=== PATIENT | female | born 1960 ===

== ENCOUNTER 2016-06-18 09:17 | Emergency (ER) | payer OTHER, MEDICAID ==
[2016-06-18 09:23] VITALS: BMI 26.5
[2016-06-18 09:36] VITALS: BP 136/80; PULSE 82; RESP 18; TEMP 98.7; O2SAT 95
[2016-06-18] MEDS ORDERED: Aluminum Hydroxide/Magnesium Hydroxide Susp (30 mL) PO STA (09:46)
[2016-06-18] MEDS ORDERED: Aluminum Hydroxide/Magnesium Hydroxide Susp (30 mL) ONE (09:47)
--- NOTE | 2016-06-18 10:06 | C.PDOC ---
History Of Present Illness 56 yr old female with PMHx of Lupus, presents to the ER stating she has chronic left hip pain and requesting pain medication. Patient states she normally takes 1 Tramadol as per need base. Patient denies recent trauma or fall, back pain, weakness or numbness. Patient walks with a cane. Time Seen by Provider: 06/18/16 09:40 Chief Complaint (Nursing): Lower Extremity Problem/Injury History Per: Patient History/Exam Limitations: no limitations Onset/Duration Of Symptoms: Persistent (Chronic ) Current Symptoms Are (Timing): Still Present Past Medical History Reviewed: Historical Data, Nursing Documentation, Vital Signs Vital Signs: Last Vital Signs Temp 98.7 F 06/18/16 09:25 Pulse 82 06/18/16 09:25 Resp 18 06/18/16 09:25 BP 136/80 06/18/16 09:25 Pulse Ox 95 06/18/16 10:56 - Medical History PMH: Gastritis, Gall Bladder Disease, Malignancy (Breast), Osteoporosis ( OSTEOPENIA) Surgical History: Cholecystectomy, Endoscopy, - [facility] Procedures INJECT/INFUSE NEC (08/03/13) Family History: States: No Known Family Hx - Social History Hx Alcohol Use: No Hx Substance Use: No - Immunization History Hx Tetanus Toxoid Vaccination: No Hx Influenza Vaccination: No Hx Pneumococcal Vaccination: No Review Of Systems Except As Marked, All Systems Reviewed And Found Negative. Musculoskeletal: Positive for: Other (Chronic left hip pain ). Negative for: Back Pain Neurological: Negative for: Weakness, Numbness Physical Exam - Physical Exam Appears: Well, Non-toxic, No Acute Distress Skin: Normal Color, Warm, Dry, No Rash Head: Atraumatic, Normacephalic Oral Mucosa: Moist Chest: Symmetrical, No Tenderness Cardiovascular: Rhythm Regular, No Murmur Respiratory: Normal Breath Sounds, No Rales, No Rhonchi, No Stridor, No Wheezing Extremity: Normal ROM, No Tenderness, No Swelling Neurological/Psych: Oriented x3, Normal Speech, Normal Motor, Normal Sensation, Normal Reflexes Gait: Steady (with a cane) ED Course And Treatment O2 Sat by Pulse Oximetry: 95 Medical Decision Making Medical Decision Making: PLAN: * Maalox PO * Tramadol PO Disposition - Disposition Referrals: [facility] [Outside] [facility] [Outside] Disposition: HOME/ ROUTINE Disposition Time: 09:35 Condition: GOOD Additional Instructions: Thank you for letting us take care of you today. Your provider was Dr. Griffin. You were treated for chronic hip pain. The emergency medical care you received today was directed at your acute symptoms. If you were prescribed any medication, please fill it and take as directed. It may take several days for your symptoms to resolve. Return to the Emergency Department if your symptoms worsen, do not improve, or if you have any other problems. Please contact your doctor or call one of the physicians/clinics you have been referred to that are listed on the Patient Visit Information form that is included in your discharge packet. Bring any paperwork you were given at discharge with you along with any medications you are taking to your follow up visit. Our treatment cannot replace ongoing medical care by a primary care provider (PCP) outside of the emergency department. [facility] you [email or web address] of your care today. Follow up with your doctor as scheduled. Prescriptions: traMADol [Ultram] 50 mg PO Q8 PRN #15 tab PRN Reason: Pain, Severe (8-10) Instructions: Autoimmune Disease (ED) Forms: Gen Discharge Inst Kyrgyz Print Language: BELARUSIAN - Clinical Impression Clinical Impression: Lupus, Hip pain, chronic - Scribe Statement The provider has reviewed the documentation as recorded by the Josue Uribe Provider Attestation: All medical record entries made by the Josue were at my direction and personally dictated by me. I have reviewed the chart and agree that the record accurately reflects my personal performance of the history, physical exam, medical decision making, and the department course for this patient. I have also personally directed, reviewed, and agree with the discharge instructions and disposition.
== END 2016-06-18 10:02 | disposition home or self-care (01) ==
LOC: C.ER 09:17
DX: G89.29 Other chronic pain (principal); M25.552 Pain in left hip; M32.9 Systemic lupus erythematosus, unspecified

== ENCOUNTER 2016-06-19 17:07 | Emergency (ER) | payer OTHER ==
[2016-06-19 17:44] VITALS: BMI 28.3
[2016-06-19] MEDS ORDERED: Oxycodone/Acetaminophen 5/325 mg Tab PO STA (18:05)
[2016-06-19] MEDS ORDERED: Oxycodone/Acetaminophen 5/325 mg Tab ONE (18:21)
--- NOTE | 2016-06-19 18:45 | C.PDOC ---
History Of Present Illness 56 yr old female presents to the ER with complaints of increasing pain in the left hip for the past 4 days. Patient states the pain is worse with walking or any movement. Patient states she has had hip pain intermittently over the past few years but states recently it has got worse. Patient states she normally takes Tramadol for the pain and was seen in ER yesterday, prescribed Tramadol but still has pain. Patient denies back pain, neck pain, headache, weakness or numbness. Time Seen by Provider: 06/19/16 18:01 Chief Complaint (Nursing): Lower Extremity Problem/Injury History Per: Patient History/Exam Limitations: no limitations Onset/Duration Of Symptoms: Days (4) Past Medical History Reviewed: Historical Data, Nursing Documentation, Vital Signs Vital Signs: Last Vital Signs Temp 98.9 F 06/19/16 17:48 Pulse 105 H 06/19/16 17:48 Resp 18 06/19/16 17:48 BP 125/81 06/19/16 17:48 Pulse Ox 99 06/19/16 18:48 - Medical History PMH: Gastritis, Gall Bladder Disease, Malignancy (Breast), Osteoporosis ( OSTEOPENIA) Surgical History: Cholecystectomy, Endoscopy, - [facility] Procedures INJECT/INFUSE NEC (08/03/13) Family History: States: No Known Family Hx - Social History Hx Alcohol Use: No Hx Substance Use: No - Immunization History Hx Tetanus Toxoid Vaccination: No Hx Influenza Vaccination: No Hx Pneumococcal Vaccination: No Review Of Systems Except As Marked, All Systems Reviewed And Found Negative. Musculoskeletal: Positive for: Other ((+) Left hip pain. ). Negative for: Neck Pain, Back Pain Neurological: Negative for: Weakness, Numbness, Headache Physical Exam - Physical Exam Appears: Well, Non-toxic, No Acute Distress Skin: Warm, Dry, No Rash Head: Atraumatic, Normacephalic Oral Mucosa: Moist Chest: Symmetrical, No Deformity Cardiovascular: Rhythm Regular, No Murmur Respiratory: Normal Breath Sounds, No Rales, No Rhonchi, No Stridor, No Wheezing Back: Other ((+) Diffuse tenderness to the LS spine, left buttock and left lateral hips. ) Extremity: Normal ROM, No Swelling Neurological/Psych: Oriented x3, Normal Speech ED Course And Treatment O2 Sat by Pulse Oximetry: 99 - Other Rad X-Ray - Left Hip X-Ray: Interpreted by Me, Viewed By Me Interpretation: No fracture. Moderate DJD. Medical Decision Making Medical Decision Making: PLAN: * X-Ray - Left Hip * Percocet PO * Toradol IM Disposition Counseled Patient/Family Regarding: Diagnosis, Need For Followup - Disposition Referrals: [facility] [Outside] Disposition: HOME/ ROUTINE Disposition Time: 18:40 Condition: FAIR Additional Instructions: Make an apt for follow up in the clinic Prescriptions: Cyclobenzaprine [Cyclobenzaprine HCl] 1 tab PO Q8H PRN #25 tab PRN Reason: Muscle Spasm Naproxen [Naprosyn] 1 tab PO BID PRN #25 tab PRN Reason: Pain oxyCODONE/Acetaminophen [Percocet 5/325 mg Tab] 1 tab PO Q4H PRN #12 tab PRN Reason: .severe pain - Clinical Impression Clinical Impression: Hip pain, left - Scribe Statement The provider has reviewed the documentation as recorded by the Josue Uribe Provider Attestation: All medical record entries made by the Josue were at my direction and personally dictated by me. I have reviewed the chart and agree that the record accurately reflects my personal performance of the history, physical exam, medical decision making, and the department course for this patient. I have also personally directed, reviewed, and agree with the discharge instructions and disposition.
[2016-06-19 19:16] VITALS: BP 123/74; PULSE 98; RESP 16; TEMP 98.4; O2SAT 100
--- NOTE | 2016-06-20 07:31 | RAD ---
PROCEDURE: Left Hip X-ray Radiographs. HISTORY: pain no trauma COMPARISON: None. FINDINGS: BONES: Normal. No fracture. JOINTS: Mild osteoarthritic changes. SOFT TISSUES: Foci of soft tissue calcifications seen adjacent to greater trochanteric bilaterally. OTHER FINDINGS: None. IMPRESSION: No evidence of acute fracture or dislocation. Mild osteoarthritic changes.
== END 2016-06-19 19:14 | disposition home or self-care (01) ==
LOC: C.ER 17:07
DX: M25.552 Pain in left hip (principal)
CPT/HCPCS: 73502; 96372; 99284; J1885

== ENCOUNTER 2016-09-18 15:05 | Emergency (ER) | payer OTHER ==
[2016-09-18 15:05] VITALS: BMI 28.3
--- NOTE | 2016-09-18 15:55 | C.PDOC ---
History Of Present Illness Patient is a 56 year old female presents to the ED for evaluation of vaginal bleeding for the last 12 days. Notes that she's had similar post menopausal vaginal bleeding in the past. Pt states she was diagnosed with breast CA in 2011. Notes having biopsy done by Dr. Pruitt on 04/25. Pt states she went to the clinic to make an appointment but was told there are no appointments available at this time, and was instead referred to the ER. Otherwise, denies any abdominal pain, n/v/d, pelvic pain, back pain, lightheadedness, dizziness, headache, fever, chills, or any other associated symptoms at this time. Chief Complaint (Nursing): Abdominal Pain History Per: Patient History/Exam Limitations: no limitations Onset/Duration Of Symptoms: Days (12) Current Symptoms Are (Timing): Still Present Severity: None Pain Scale Rating Of: 0 Radiation Of Pain To:: None Quality Of Discomfort: "Pain" Associated Symptoms: denies: Fever, Chills, Loss Of Appetite, Back Pain, Chest Pain, Constipation, Urinary Symptoms Exacerbating Factors: None Alleviating Factors: None Recent travel outside of the [place]: No Additional History Per: Patient Abnormal Vaginal Bleeding: Yes Past Medical History Reviewed: Historical Data, Nursing Documentation, Vital Signs Vital Signs: Last Vital Signs Temp 97.8 F 09/18/16 15:11 Pulse 103 H 09/18/16 15:11 Resp 18 09/18/16 15:11 BP 151/90 H 09/18/16 15:11 Pulse Ox 98 09/18/16 17:40 - Medical History PMH: Gastritis, Gall Bladder Disease, Malignancy (Breast), Osteoporosis ( OSTEOPENIA) Surgical History: Cholecystectomy (2001), Endoscopy, - [facility] Procedures INJECT/INFUSE NEC (08/03/13) Family History: States: Unknown Family Hx - Social History Hx Alcohol Use: No Hx Substance Use: No - Immunization History Hx Tetanus Toxoid Vaccination: No Hx Influenza Vaccination: No Hx Pneumococcal Vaccination: No Review Of Systems Except As Marked, All Systems Reviewed And Found Negative. Constitutional: Negative for: Fever, Chills Cardiovascular: Negative for: Chest Pain, Light Headedness Respiratory: Negative for: Shortness of Breath Gastrointestinal: Negative for: Nausea, Vomiting, Abdominal Pain, Diarrhea, Constipation Genitourinary: Positive for: Vaginal Bleeding. Negative for: Dysuria, Frequency , Incontinence, Hematuria, Pelvic Pain Musculoskeletal: Negative for: Back Pain Neurological: Negative for: Headache, Dizziness Physical Exam - Physical Exam Appears: Non-toxic, No Acute Distress Skin: Normal Color, Warm, Dry Head: Atraumatic, Normacephalic Eye(s): bilateral: Normal Inspection Oral Mucosa: Moist Neck: Supple Cardiovascular: Rhythm Regular, No Murmur Respiratory: Normal Breath Sounds, No Rales, No Rhonchi, No Wheezing Gastrointestinal/Abdominal: Soft, No Tenderness Extremity: Bilateral: Atraumatic, Normal ROM Neurological/Psych: Oriented x3, Normal Speech, Normal Cognition ED Course And Treatment - Laboratory Results Result Diagrams: 09/18/16 16:02 09/18/16 16:02 O2 Sat by Pulse Oximetry: 98 (RA) Pulse Ox Interpretation: Normal - CT Scan/US Pelvis/transvag US Other Rad Studies (CT/US): Read By Radiologist, Radiology Report Reviewed CT/US Interpretation: FINDINGS: UTERUS: Measures approximately 7.1 x 4.7 x 5.5 cm. Retroverted. Heterogeneous uterine echotexture limits evaluation for small masses or fibroids. 5 x 6 x 5 mm uterine calcification identified. 4.2 x 2.7 x 4.1 cm probable mid uterine fibroid. 1.5 x 0.8 x 1.5 cm probable posterior uterine fibroid. 3 x 2 x 3 mm anechoic focus within the uterus, uncertain significance. ENDOMETRIUM: Measures 6 mm in diameter. CERVIX: No cervical abnormality identified. RIGHT OVARY: Measures 2.4 x 1.1 x 1.5 cm. Blood flow is demonstrated. LEFT OVARY: Measures 1.7 x 1.0 x 1.8 cm. Suboptimal evaluation of what appears to be limited blood flow in the left ovary. FREE FLUID: No significant free fluid noted. OTHER FINDINGS: None. IMPRESSION: Heterogeneous uterine echotexture. Two probable uterine fibroids as above measuring approximately 4.2 cm and 1.5 cm. 3 x 2 x 3 mm anechoic focus within the uterus, uncertain significance. 5 x 6 x 5 mm uterine calcification identified. Suboptimal evaluation of what appears to be limited blood flow to the left ovary. Progress Note: Blood work, urinalysis, transvaginal ultrasound ordered and reviewed. On re-eval, patient is resting comfortably, denies any chest pain, shortness of breath, or lightheadedness. Spoke with Clinic and made an appointment for the patient for , September 24, 2016 at 8 am. 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 Disposition - Disposition Referrals: Alcides Pruitt [Staff Provider] - [facility] [Outside] Disposition: HOME/ ROUTINE Disposition Time: 17:49 Condition: STABLE Additional Instructions: Follow up in OBGYN Clinic on Thursday. September 24, 2016 at 8 am. Return to ED if feel worse. Seguimiento en la [facility] el [facility]. 16 2016 a las 8 am. Regrese a la catarina de emergencias si se siente peor. 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 - Scribe Statement The provider has reviewed the documentation as recorded by the Scribe Abiola Ordoñez All medical record entries made by the Natanaelibdestiney were at my direction and personally dictated by me. I have reviewed the chart and agree that the record accurately reflects my personal performance of the history, physical exam, medical decision making, and the department course for this patient. I have also personally directed, reviewed, and agree with the discharge instructions and disposition.
[2016-09-18 16:08] LABS: BASO # 0.1 K/uL (0.0-0.2); BASO % 0.7 % (0.0-2.0); EOS # 0.2 K/uL (0.0-0.7); EOS % 2.2 % (0.0-4.0); HEMATOCRIT 40.6 % (34.0-47.0); LYMPH # 2.9 K/uL (1.0-4.3); LYMPH % 31.4 % (20.0-40.0); MEAN CELL VOLUME 87.5 fL (81.0-99.0); MEAN CORPUSCULAR HEMOGLOBIN 29.8 pg (27.0-31.0); MEAN PLATELET VOLUME 9.6 fL (7.2-11.7); MONO # 0.5 K/uL (0.0-0.8); MONO % 5.7 % (0.0-10.0); NRBC % 0.1 % (0.0-2.0); WHITE BLOOD COUNT 9.3 K/uL (4.8-10.8)
[2016-09-18 16:23] LABS: ALKALINE PHOSPHATASE 69 U/L (38-126); ALT/SGPT 31 U/L (9-52); AST/SGOT 31 U/L (14-36); BILIRUBIN,TOTAL 0.5 mg/dL (0.2-1.3); BLOOD UREA NITROGEN 13 mg/dL (7-17); CARBON DIOXIDE 29 mmol/L (22-30); CHLORIDE 101 mmol/L (98-107); GFR AFRICAN-AMERICAN > 60; GLUCOSE,RANDOM 101 mg/dL (65-105); POTASSIUM 4.3 mmol/L (3.6-5.2); SODIUM 142 mmol/L (132-148); TOTAL PROTEIN 7.8 g/dL (6.3-8.3)
--- NOTE | 2016-09-18 17:29 | US ---
HISTORY: post menopausal vaginal bleeding COMPARISON: None available. TECHNIQUE: Real-time transabdominal pelvic ultrasound was performed. In addition a transvaginal pelvic ultrasound was necessary to better depict pelvic anatomy. FINDINGS: UTERUS: Measures approximately 7.1 x 4.7 x 5.5 cm. Retroverted. Heterogeneous uterine echotexture limits evaluation for small masses or fibroids. 5 x 6 x 5 mm uterine calcification identified. 4.2 x 2.7 x 4.1 cm probable mid uterine fibroid. 1.5 x 0.8 x 1.5 cm probable posterior uterine fibroid. 3 x 2 x 3 mm anechoic focus within the uterus, uncertain significance. ENDOMETRIUM: Measures 6 mm in diameter. CERVIX: No cervical abnormality identified. RIGHT OVARY: Measures 2.4 x 1.1 x 1.5 cm. Blood flow is demonstrated. LEFT OVARY: Measures 1.7 x 1.0 x 1.8 cm. Suboptimal evaluation of what appears to be limited blood flow in the left ovary. FREE FLUID: No significant free fluid noted. OTHER FINDINGS: None. IMPRESSION: Heterogeneous uterine echotexture. Two probable uterine fibroids as above measuring approximately 4.2 cm and 1.5 cm. 3 x 2 x 3 mm anechoic focus within the uterus, uncertain significance. 5 x 6 x 5 mm uterine calcification identified. Suboptimal evaluation of what appears to be limited blood flow to the left ovary.
[2016-09-18 17:53] LABS: RBC URINE 97 /hpf (0-3); TRANSITIONAL EPITHIAL 1 /hpf (0-3); URINE BACTERIA OCC (<OCC); URINE BILIRUBIN NEGATIVE (NEGATIVE); URINE BLOOD 3+ (NEGATIVE); URINE COLOR Straw (YELLOW); URINE GLUCOSE (UA) NORMAL (Normal); URINE KETONE NEGATIVE (NEGATIVE); URINE LEUKOCYTE ESTERASE 2+ Leu/uL (Negative); URINE PROTEIN NEGATIVE (NEGATIVE); URINE UROBILINOGEN NORMAL mg/dL (0.2-1.0); WBC URINE 17 /hpf (0-5)
[2016-09-18 18:03] VITALS: BP 136/84; PULSE 97; RESP 20; TEMP 97.7
[2016-09-18 18:31] VITALS: O2SAT 98
== END 2016-09-18 18:04 | disposition home or self-care (01) ==
LOC: C.ER 15:05
DX: N95.0 Postmenopausal bleeding (principal)

== ENCOUNTER 2018-02-12 10:17 | Emergency (ER) | payer SELFPAY ==
[2018-02-12 10:18] VITALS: BMI 27.6
[2018-02-12] MEDS ORDERED: Sodium Chloride 0.9% 1,000 ML IV STA (11:29)
[2018-02-12] MEDS ORDERED: Iohexol 240 (50 ml) PO STA (11:29)
--- NOTE | 2018-02-12 11:29 | C.PDOC ---
Time Seen by Provider: 02/12/18 10:51 Chief Complaint (Nursing): GI Problem Past Medical History Vital Signs: Last Vital Signs Temp 97.9 F 02/12/18 10:25 Pulse 106 H 02/12/18 10:25 Resp 20 02/12/18 10:25 BP 147/91 H 02/12/18 10:25 Pulse Ox 98 02/12/18 10:25 - Medical History PMH: Gastritis, Gall Bladder Disease, Malignancy (Breast), Osteoporosis (OSTEOPENIA) Denies: Chronic Kidney Disease Surgical History: Cholecystectomy (2001), Endoscopy, - [facility] Procedures INJECT/INFUSE NEC (08/03/13) Family History: States: Unknown Family Hx - Social History Hx Alcohol Use: No Hx Substance Use: No - Immunization History Hx Tetanus Toxoid Vaccination: No Hx Influenza Vaccination: No Hx Pneumococcal Vaccination: No ED Course And Treatment O2 Sat by Pulse Oximetry: 98 Disposition - Disposition
--- NOTE | 2018-02-12 11:31 | C.PDOC ---
History Of Present Illness 57yo female, comes to ER reporting constipation "for a long time" and now with abdominal pain, vomiting and diarrhea since last night. Patient states she had been using home remedies like papaya juice, aloe vera but had no relief with her constipation. She now feels as if he abdomen is swollen as well. Patient has been unable to tolerate any PO intake. She denies any fever, chills, chest pain, and offers no additional complaints. 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 denies: Fever, Chills, Chest Pain Additional History Per: Patient Past Medical History Reviewed: Historical Data, Nursing Documentation, Vital Signs Vital Signs: Last Vital Signs Temp 97.9 F 02/12/18 10:25 Pulse 106 H 02/12/18 10:25 Resp 20 02/12/18 10:25 BP 147/91 H 02/12/18 10:25 Pulse Ox 98 02/12/18 10:25 - Medical History PMH: Gastritis, Gall Bladder Disease, Malignancy (Breast), Osteoporosis (OS TEOPENIA) Denies: Chronic Kidney Disease Other PMH: lupus Surgical History: Cholecystectomy (2001), Endoscopy, Other Surgeries: left mastectomy - [facility] Procedures INJECT/INFUSE NEC (08/03/13) Family History: States: No Known Family Hx, Unknown Family Hx - Social History Hx Tobacco Use: No Hx Alcohol Use: No Hx Substance Use: No - Immunization History Hx Tetanus Toxoid Vaccination: No Hx Influenza Vaccination: No Hx Pneumococcal Vaccination: No Review Of Systems Except As Marked, All Systems Reviewed And Found Negative. Constitutional: Negative for: Fever, Chills Cardiovascular: Negative for: Chest Pain Respiratory: Negative for: Shortness of Breath Gastrointestinal: Positive for: Nausea, Vomiting, Abdominal Pain, Diarrhea, Constipation, Other (abdominal swelling) Physical Exam - Physical Exam Appears: Non-toxic Skin: Normal Color, Warm Head: Normacephalic Eye(s): bilateral: Normal Inspection Neck: Normal ROM, Supple Chest: Symmetrical Cardiovascular: Rhythm Regular Respiratory: Normal Breath Sounds Gastrointestinal/Abdominal: Soft, Tenderness (periumbilical), Distention, Guarding, No Rebound Back: Normal Inspection Extremity: Normal ROM Neurological/Psych: Oriented x3 ED Course And Treatment - Laboratory Results Result Diagrams: 02/12/18 11:40 02/12/18 11:40 O2 Sat by Pulse Oximetry: 98 (RA) Pulse Ox Interpretation: Normal - CT Scan/US CT of abdomen/pelvis Other Rad Studies (CT/US): Read By Radiologist, Radiology Report Reviewed CT/US Interpretation: Accession No. : [id number]. Patient Name / ID : MEETA PERDOMO H / [id number]. Exam Date : 02/12/2018 14:26:53 ( Approved ). Study Comment : Sex / Age : F / 57Y. Creator : Charla Perera. Dictator : Mary Em MD. Returned Goods Repairer : Hammer Driver : Mary Em MD. Approver2 : Report Date : 02/12/2018 14:47:17. My Comment : . Date of service: 02/12/2018. PROCEDURE: CT Abdomen and Pelvis with contrast. HISTORY: abd pain, vomiting mixed constipation/diarrhea. COMPARISON: 06/05/2017. TECHNIQUE: CT scan of the abdomen and pelvis was performed after administration of intravenous contrast. Oral contrast was admini stered. Coronal and sagittal reformatted images were obtained. Contrast dose: 100 mL Visipaque 320. Radiation dose: Total exam DLP = 693.81 mGy-cm. This CT exam was performed using one or more of the following dose reduction techniques: Automated exposure control, adjustment of the mA and/or kV according to patient size, and/or use of iterative reconstruction technique. FINDINGS: LOWER THOR AX: There is subsegmental atelectasis in the lung bases. Status post left mastectomy. LIVER: Normal in size with homogeneous enhancement. Fatty liver. Mild dilatation of the intra and extrahepatic biliary radicles is likely related to postcholecystectomy status. GALLBLADDER AND BILE DUCTS: Surgically absent. PANCREAS: Normal in size with homogeneous enhancement. No gross lesion or ductal dilatation. SPLEEN: Normal in size and appearance. ADRENALS: No discrete nodule. KIDNEYS AND URETERS: Normal in size with homogeneous enhancement. No hydronephrosis. No solid mass. VASCULATURE: No aortic aneurysm. BOWEL: There is mild dilatation of the mid and distal small bowel loops. There is segmental narrowing in a loop of small bowel in the right lower quadrant with moderate circumferential mural thickening and also segmental narrowing of the terminal ileum with mild circumferential mural thickening.. The colon is grossly normal in appearance. No bowel wall thickening or o bstruction. APPENDIX: Normal appendix. PERITONEUM: No free fluid. No free air. LYMPH NODES: No enlarged lymph nodes. BLADDER: Well distended and normal in appearance. REPRODUCTIVE: Retroverted fibroid uterus with the largest intramural fibroid in the posterior wall. BONES: No acute fracture. Within normal limits for the patient's age. OTHER FINDINGS: None. IMPRESSION: 1. Multifocal segmental narrowing in the distal small bowel loops with associated moderate circumferential mural thickening and mild proximal dilatation which may represent nonspecific acute infectious/inflammatory enteritis. No bowel obstruction. 2. Fatty liver. 3. Retroverted fibroid uterus. Progress Note: Labs, urinalysis and CT Abdomen/Pelvis w/ IV & PO Contrast ordered. Patient given IV fluids, protonix, morphine and zofran. On re- evaluation patient feels better, tolerates po and is stable to be d/c home with PMD follow up. Disposition - Disposition Disposition: HOME/ ROUTINE Disposition Time: 16:53 Condition: STABLE Additional Instructions: Follow up with PMD within 1-2 days. Return to ED if feel worse. 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 - Scribe Statement The provider has reviewed the documentation as recorded by the Josue Reed Provider Attestation: All medical record entries made by the Josue were at my direction and personally dictated by me. I have reviewed the chart and agree that the record accurately reflects my personal performance of the history, physical exam, medical decision making, and the department course for this patient. I have also personally directed, reviewed, and agree with the discharge instructions and disposition.
[2018-02-12] MEDS ORDERED: Morphine 4 MG/ML VIAL ONE (11:48)
[2018-02-12] MEDS ORDERED: Iohexol 240 (50 ml) ONE (11:48)
[2018-02-12 11:49] LABS: SQUAMOUS EPITHIAL 1 /hpf (0-5); URINE BILIRUBIN NEGATIVE (NEGATIVE); URINE BLOOD 1+ (NEGATIVE); URINE CLARITY Clear (Clear); URINE COLOR Yellow (YELLOW); URINE GLUCOSE (UA) NORMAL (Normal); URINE LEUKOCYTE ESTERASE NEG Leu/uL (Negative); URINE PROTEIN NEGATIVE (NEGATIVE); URINE UROBILINOGEN NORMAL mg/dL (0.2-1.0)
[2018-02-12 11:50] LABS: BASO % 0.3 % (0.0-2.0); EOS % 0.2 % (0.0-4.0); HEMOGLOBIN 16.1 g/dL (11.0-16.0); LYMPH % 8.6 % (20.0-40.0); MEAN CORPUSCULAR HEMOGLOBIN 30.8 pg (27.0-31.0); MEAN CORPUSCULAR HGB CONC 34.6 g/dL (33.0-37.0); MEAN PLATELET VOLUME 9.9 fL (7.2-11.7); MONO # 0.4 K/uL (0.0-0.8); MONO % 3.8 % (0.0-10.0); NEUT # 10.4 K/uL (1.8-7.0); NEUT % 87.1 % (50.0-75.0); PLATELET COUNT 230 K/uL (130-400); RBC 5.23 Mil/uL (3.80-5.20); RED CELL DISTRIBUTION WIDTH 13.2 % (11.5-14.5)
[2018-02-12 11:51] LABS: WHITE BLOOD COUNT 11.9 K/uL (4.8-10.8)
[2018-02-12 12:03] LABS: ALB/GLOB RATIO 1.1 (1.0-2.1); ALT/SGPT 25 U/L (9-52); AST/SGOT 42 U/L (14-36); BLOOD UREA NITROGEN 14 mg/dL (7-17); CALCIUM 9.5 mg/dl (8.6-10.4); GFR NON-AFRICAN AMERICAN > 60; LIPASE 75 U/L (23-300)
[2018-02-12 12:23] VITALS: O2SAT 98
[2018-02-12 12:24] LABS: LYMPHOCYTE 8 % (20-40); MONOCYTE 3 % (0-10); NEUTROPHIL 89 % (50-75); PLATELET ESTIMATE NORMAL (NORMAL); TOTAL CELLS COUNTED 100
[2018-02-12] MEDS ORDERED: Iodixanol 320 MG/ML 100 ML BOTTLE IV ONE (14:15)
--- NOTE | 2018-02-12 15:30 | CT ---
Date of service: 02/12/2018 PROCEDURE: CT Abdomen and Pelvis with contrast HISTORY: abd pain, vomiting mixed constipation/diarrhea COMPARISON: 06/05/2017. TECHNIQUE: CT scan of the abdomen and pelvis was performed after administration of intravenous contrast. Oral contrast was administered. Coronal and sagittal reformatted images were obtained. Contrast dose: 100 mL Visipaque 320 Radiation dose: Total exam DLP = 693.81 mGy-cm. This CT exam was performed using one or more of the following dose reduction techniques: Automated exposure control, adjustment of the mA and/or kV according to patient size, and/or use of iterative reconstruction technique. FINDINGS: LOWER THORAX: There is subsegmental atelectasis in the lung bases. Status post left mastectomy. LIVER: Normal in size with homogeneous enhancement. Fatty liver. Mild dilatation of the intra and extrahepatic biliary radicles is likely related to postcholecystectomy status. GALLBLADDER AND BILE DUCTS: Surgically absent. PANCREAS: Normal in size with homogeneous enhancement. No gross lesion or ductal dilatation. SPLEEN: Normal in size and appearance. ADRENALS: No discrete nodule. KIDNEYS AND URETERS: Normal in size with homogeneous enhancement. No hydronephrosis. No solid mass. VASCULATURE: No aortic aneurysm. BOWEL: There is mild dilatation of the mid and distal small bowel loops. There is segmental narrowing in a loop of small bowel in the right lower quadrant with moderate circumferential mural thickening and also segmental narrowing of the terminal ileum with mild circumferential mural thickening.. The colon is grossly normal in appearance. No bowel wall thickening or obstruction. APPENDIX: Normal appendix. PERITONEUM: No free fluid. No free air. LYMPH NODES: No enlarged lymph nodes. BLADDER: Well distended and normal in appearance. REPRODUCTIVE: Retroverted fibroid uterus with the largest intramural fibroid in the posterior wall. BONES: No acute fracture. Within normal limits for the patient's age. OTHER FINDINGS: None. IMPRESSION: 1. Multifocal segmental narrowing in the distal small bowel loops with associated moderate circumferential mural thickening and mild proximal dilatation which may represent nonspecific acute infectious/inflammatory enteritis. No bowel obstruction. 2. Fatty liver. 3. Retroverted fibroid uterus.
[2018-02-12 17:09] VITALS: BP 124/68; PULSE 88; RESP 14; TEMP 98
== END 2018-02-12 17:29 | disposition home or self-care (01) ==
LOC: C.ER 10:17
DX: K52.9 Noninfective gastroenteritis and colitis, unspecified (principal); M32.9 Systemic lupus erythematosus, unspecified
CPT/HCPCS: 74177; 80053; 81001; 83690; 85025; 96374; 96375; 99285; C9113; J2270; J2405; J7030; Q9966; Q9967

== ENCOUNTER 2018-04-13 06:52 | Day surgery (SDC) | payer SELFPAY ==
[2018-03-30 10:39] VITALS: BMI 27.6
[2018-04-13 07:18] VITALS: O2SAT 100
[2018-04-13] MEDS ORDERED: Lactated Ringer's 500 ML IV ONE ×2 (09:02→09:39)
--- NOTE | 2018-04-13 09:07 | CP.SDSHP ---
Same Day Surgery H & P - History Proposed Procedure: egd. colonoscopy Pre-Op Diagnosis: epigastric pain. heartburn]. weight loss. h/o colon polyps. Family h/o GI cancer (multiple) - Previous Medical/Surgical History Neuro: Other (SLE, Breast cancer, colon polyps) Comments: Father, sister and brother all of GI cancers age 40s, 50s. Previous Surgical History: Left mastectomy 2003. Cholecystectomy 2011. C- section x2 - Allergies Allergies: Allergies No Known Allergies Allergy (Verified 09/18/16 15:26) - Physical Exam Vital Signs: Vital Signs 04/13/18 07:14 Temperature 98.4 F Pulse Rate 103 H Respiratory 18 Rate Blood Pressure 138/82 O2 Sat by Pulse 100 Oximetry Mental Status: Alert & Oriented x3 Neuro: WNL Heart: WNL Lungs: WNL GI: WNL - Impression Impression: epigastric pain. heartburn. weight loss. h/o colon polyps. family h/o GI Cancers (colon, stomach, pancreas) Pt. Evaluated Today:Candidate for Anesthesia & Procedure: Yes - Date & Time Date: 04/13/18 Time: 09:08 Short Stay Discharge - Short Stay Discharge Admitting Diagnosis/Reason for Visit: EPIGASTRIC PAIN, HEART BURN, ABNORMAL WEIGHT LOSS Disposition: HOME/ ROUTINE
[2018-04-13] MEDS ORDERED: Propofol 10 mg/ml Inj (20 ML) ONE ×2 (09:08→09:15)
[2018-04-13 10:14] VITALS: RESP 18
[2018-04-13 12:16] VITALS: BP 137/56; PULSE 76; TEMP 98.1
== END 2018-04-13 12:10 | disposition home or self-care (01) ==
LOC: C.ENDO 06:52
PROVIDERS: ATTEND Internal Medicine Gastroenterology
DX: K21.0 Gastro-esophageal reflux disease with esophagitis (principal); K29.50 Unspecified chronic gastritis without bleeding; K57.30 Diverticulosis of large intestine without perforation or abscess without bleeding; K64.1 Second degree hemorrhoids; Z86.010 Personal history of colon polyps; M32.9 Systemic lupus erythematosus, unspecified; Z90.12 Acquired absence of left breast and nipple; Z85.3 Personal history of malignant neoplasm of breast; Z80.0 Family history of malignant neoplasm of digestive organs
CPT/HCPCS: 43239; 45378; 88305; 88312; 88342; J2001; J2704; J7120

== ENCOUNTER 2018-05-26 08:38 | Outpatient (CLI) | payer SELFPAY | END 2018-05-26 08:39 | disposition home or self-care (01) | LOC: C.CTH 08:38 | DX: R63.4 Abnormal weight loss (principal); R10.30 Lower abdominal pain, unspecified ==

== ENCOUNTER 2018-06-25 10:15 | Emergency (ER) | payer SELFPAY, MEDICAID ==
[2018-06-25 10:15] VITALS: BMI 27.6
[2018-06-25 10:24] VITALS: TEMP 98.1
--- NOTE | 2018-06-25 11:26 | C.PDOC ---
History Of Present Illness 58 year old female with PMHx of hemorrhoids, fibroids, lupus, and left sided mastectomy presents to the ED complaining of low back pain and bladder pain. Also reports hematuria for one month. States she has history of chronic back pain but this time is worse. Denies any trauma or injuries. Denies any nausea, chills, or fever. Time Seen by Provider: 06/25/18 10:47 Chief Complaint (Nursing): Back Pain History Per: Patient History/Exam Limitations: no limitations Onset/Duration Of Symptoms: Days Current Symptoms Are (Timing): Still Present Quality Of Discomfort: "Pain" Previous Symptoms: Chronic Pain Associated Symptoms: None Past Medical History Reviewed: Historical Data, Nursing Documentation, Vital Signs Vital Signs: Last Vital Signs Temp 98.1 F 06/25/18 10:20 Pulse 80 06/25/18 10:20 Resp 18 06/25/18 10:20 BP 146/81 06/25/18 10:20 Pulse Ox 100 06/25/18 10:20 Primary Care Provider: Clinic,Med Surg - Medical History PMH: Gastritis, Gall Bladder Disease, Malignancy (Breast), Osteoporosis (OSTEOPENIA) Denies: Chronic Kidney Disease Surgical History: Cholecystectomy (2001), Endoscopy, - [facility] Procedures INJECT/INFUSE NEC (08/03/13) Family History: States: No Known Family Hx - Social History Hx Tobacco Use: No Hx Alcohol Use: No Hx Substance Use: No - Immunization History Hx Tetanus Toxoid Vaccination: No Hx Influenza Vaccination: No Hx Pneumococcal Vaccination: No Review Of Systems Constitutional: Negative for: Fever, Chills Gastrointestinal: Negative for: Nausea, Vomiting Genitourinary: Positive for: Hematuria Musculoskeletal: Positive for: Back Pain Neurological: Negative for: Weakness, Numbness Physical Exam - Physical Exam Appears: Non-toxic, Other (uncomfortable) Skin: Warm, Dry, No Rash Head: Atraumatic, Normacephalic Eye(s): bilateral: Normal Inspection, EOMI Nose: Normal Oral Mucosa: Moist Neck: Normal ROM, Supple Chest: Symmetrical Cardiovascular: Rhythm Regular Respiratory: Normal Breath Sounds, No Rales, No Rhonchi, No Wheezing Gastrointestinal/Abdominal: Soft, Tenderness (minimal right flank tenderness ), No Guarding, No Rebound, No Other (suprapubic tenderness ) Back: Normal Inspection, No Vertebral Tenderness, No Decreased ROM, Paraspinal Tenderness Extremity: Swelling (arhtritis to joints of hands) Neurological/Psych: Oriented x3, Normal Speech Gait: Steady ED Course And Treatment O2 Sat by Pulse Oximetry: 100 (RA) Pulse Ox Interpretation: Normal Medical Decision Making Medical Decision Making: Plan - Tylenol 650mg PO - Toradol 30mg IM - UA Prior records reviewed - Patient was seen on 06/21/18 and labs were unremarkable. 1244 Patient re-evaluated and reports pain is improving. She has no fever and in no distress. She has no signs of sepsis. I recommend that she take analgesics and follow up with her doctor and speciali sts as advised by her PMD Disposition Counseled Patient/Family Regarding: Diagnosis, Need For Followup, Rx Given - Disposition Disposition: HOME/ ROUTINE Disposition Time: 12:45 Condition: STABLE Additional Instructions: You can apply heat to area Take Tylenol 500mg for any pain Take Ibuprofen as needed for pain every 6-8 hours, with food to not upset stomach Puedes aplicar calor a la andriy. Yue Tylenol 500mg para cualquier dolor. Wiggins ibuprofeno segn sea necesario para el dolor cada 6-8 horas, con alimentos que no molesten el estmago. Prescriptions: Acetaminophen [Acetaminophen 8 Hour] 650 mg PO Q8 #30 tablet.er Ibuprofen [Motrin] 1 tab PO Q8 PRN #30 tab PRN Reason: Pain Instructions: Low Back Pain (DC) Print Language: KOREAN - POA Present On Arrival: None - Clinical Impression Clinical Impression: Low back pain, Arthralgia - PA / [employer] / Resident Statement MD/DO has reviewed & agrees with the documentation as recorded. - Scribe Statement The provider has reviewed the documentation as recorded by the Scribe Alexa Arciniega All medical record entries made by the Natanaelibdestiney were at my direction and personally dictated by me. I have reviewed the chart and agree that the record accurately reflects my personal performance of the history, physical exam, medical decision making, and the department course for this patient. I have also personally directed, reviewed, and agree with the discharge instructions and disposition.
[2018-06-25 11:54] LABS: SQUAMOUS EPITHIAL < 1 /hpf (0-5); URINE BILIRUBIN NEGATIVE (NEGATIVE); URINE BLOOD 1+ (NEGATIVE); URINE CLARITY Clear (Clear); URINE COLOR Yellow (YELLOW); URINE GLUCOSE (UA) NORMAL (Normal); URINE LEUKOCYTE ESTERASE NEG Leu/uL (Negative); URINE PROTEIN NEGATIVE (NEGATIVE); URINE UROBILINOGEN NORMAL mg/dL (0.2-1.0)
[2018-06-25 12:59] VITALS: BP 125/66; PULSE 95; RESP 16
[2018-06-25 13:01] VITALS: O2SAT 100
== END 2018-06-25 12:58 | disposition home or self-care (01) ==
LOC: C.ER 10:15
DX: M54.5 Low back pain (principal); M25.50 Pain in unspecified joint
CPT/HCPCS: 81001; 96372; 99284; J1885